=== PATIENT | female | born 2000 | race Caucasian/White ===

== ENCOUNTER 2018-06-14 01:54 | Emergency (ER) | payer BC, SELFPAY ==
[2018-06-14 02:00] VITALS: BP 145/96; PULSE 120; RESP 20; TEMP 36.1; O2SAT 100
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
== END 2018-06-14 04:30 | disposition home or self-care (01) ==
PROVIDERS: Emergency Provider Emergency Medicine; PCP Family Medicine
DX: S91.112A Laceration without foreign body of left great toe without damage to nail, initial encounter (principal); S61.210A Laceration without foreign body of right index finger without damage to nail, initial encounter; W25.XXXA Contact with sharp glass, initial encounter
CPT/HCPCS: 12001; 12035

== ENCOUNTER 2018-06-27 22:58 | Emergency (ER) | payer BC, SELFPAY ==
[2018-06-27 23:05] VITALS: RESP 16; TEMP 36.6
--- NOTE | 2018-06-27 23:18 | ED.GENADUL_ITS ---
Discharge Plan Disposition Patient Disposition: HOME Condition: Improving Discharge Details Chief Complaint: SutureRem Clinical Impression: Encounter for removal of sutures Primary Care Provider: MARTIN HAYWOOD ED Provider: Lazaro Alas Home Meds and New Rx's Prescriptions: Continued Control 1 tab PO DAILY RF: 0 Discharge Instructions Additional Instructions: May shower and pat dry once daily. May apply Band-Aid for another 5 days. Return for any acute concerns Medical Decision Making 17-year-old female presents for removal of sutures placed on June 14 1 sutures in the left upper arm. Removed without dehiscence. Wound appears well. Stable for discharge HPI General Mode of arrival: ambulatory . Date/Time Provider Initiated Documentation: 06/27/18 23:02 . Limitations to Documentation: no limitations . Information obtained by: patient . 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 Pleasant, well groomed, interactive. HEAD: Normocephalic, atraumatic ENT: Mucous membranes moist, oropharynx unremarkable, External ear exam unremarkable EYES: PERRL, EOMI NECK: Full ROM, no KATLYN, no menigismus EXT: Full ROM, no edema, no rash. Upper extremity with healing lacerations. 21 sutures removed. No dehiscence Neuro: Grossly normal neurologic exam, conversant, interactive. Psych: Speech fluent, thoughts congruent, affect normal Course Vital Signs Temperature 36.6 C 06/27/18 23:05 Respiratory Rate 16 06/27/18 23:05 Temperature 36.6 C 06/27/18 23:05 Temperature Source Temporal Artery Scan 06/27/18 23:05 Respiratory Rate 16 06/27/18 23:05 Respiratory Effort Non-Labored 06/27/18 23:05 Pain Level 0 06/27/18 23:05
[2018-06-27 23:22] VITALS: RESP 16; TEMP 36.6
== END 2018-06-27 23:20 | disposition home or self-care (01) ==
PROVIDERS: Emergency Provider Emergency Medicine; PCP Family Medicine
DX: S91.112D Laceration without foreign body of left great toe without damage to nail, subsequent encounter (principal); S61.210D Laceration without foreign body of right index finger without damage to nail, subsequent encounter; W25.XXXD Contact with sharp glass, subsequent encounter; Z48.02 Encounter for removal of sutures

== ENCOUNTER 2019-09-04 16:35 | Outpatient (REF) | payer BC, SELFPAY ==
[2019-09-07 15:50] LABS: COVID-19 RT-PCR UVMMC Result Negative (Negative)
== END 2019-09-04 16:55 ==
LOC: LBN 16:35
PROVIDERS: PCP Family Medicine; Visit Provider Nurse Practitioner Adult Health
DX: Z11.59 Encounter for screening for other viral diseases (principal); Z20.828 Contact with and (suspected) exposure to other viral communicable diseases
CPT/HCPCS: U0003

== ENCOUNTER 2020-11-22 19:06 | Outpatient (REF) | payer BC, SELFPAY ==
[2020-11-24 12:55] LABS: COVID-19 RT-PCR UVMMC Result Negative (Negative)
== END 2020-11-22 19:07 | disposition home or self-care (01) ==
LOC: LBN 19:06
PROVIDERS: PCP Family Medicine; Visit Provider Family Medicine
DX: Z20.822 Contact with and (suspected) exposure to COVID-19 (principal)
CPT/HCPCS: U0003

== ENCOUNTER 2020-12-14 16:52 | Outpatient (REF) | payer SELFPAY ==
[2020-12-15 18:58] LABS: COVID-19 RT-PCR UVMMC Result Negative (Negative)
== END 2020-12-14 16:53 | disposition home or self-care (01) ==
LOC: LBN 16:52
PROVIDERS: PCP Family Medicine; Visit Provider Family Medicine
DX: Z20.822 Contact with and (suspected) exposure to COVID-19 (principal)
CPT/HCPCS: U0003